=== PATIENT | male | born 1985 | race Caucasian/White ===

== ENCOUNTER 2020-10-23 07:55 | Day surgery (SDC) | payer BC ==
[~2020-10-23] VITALS: Ht 172.7 cm; Wt 75.5 kg
--- NOTE | 2020-10-23 09:49 | NUR ---
10/23/20 0949 ZACHERY DIANA 0944-PATIENT ARIVED TO PACU ON 2L O2. BREATHING LAYING LEFT LATERAL, BREATHING EVEN AND UNLABORED. NONAROUSABLE TO VERBAL OR TACTILE STIMULI AT THIS TIME. IN SINUS RHYTHM AND IV FLUIDS INFUSING.
--- NOTE | 2020-10-23 18:19 | OR ---
[facility] [address], [place] [address] Signed DATE OF OPERATION: 10/23/2020 SURGEON: Sintia Jones MD PREOPERATIVE DIAGNOSES: 1. Right-sided abdominal pain. 2. Daily alcohol use. 3. Daily snuff use. 4. Father with colonic polyps. 5. Previous history of smoking. POSTOPERATIVE DIAGNOSES: 1. Mild patchy distal gastritis. 2. Tiny hiatal hernia. 3. Small vallecular polypoid lesion. 4. 4 mm polyp at 10 cm. 5. Minimal internal hemorrhoids. PROCEDURES: 1. EGD with CLOtest and biopsies of the antrum and GE junction. 2. Colonoscopy with hot biopsy and cold biopsies of the terminal ileum. ESTIMATED BLOOD LOSS: None. INDICATIONS: Gaby is a 35-year-old gentleman asked to see me for upper and lower endoscopy with biopsies. 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. He and his both work and live in [place], [place]. They just had their 2nd baby. We just came through the COVID pandemic this last year. Oliverio feels like he has been under a fair amount of stress. He said he has had trouble now for several months with abdominal pain. It seems to be in the right mid quadrant as well as the right upper quadrant, but also in the left upper quadrant. The ultrasound of the gallbladder showed a tiny 4 mm polyp in his gallbladder that would not explain his pain. Polyps approaching 10 mm can be associated with cancers and have to be removed. He also had a CT scan of abdomen and pelvis last fall which was negative. He had a recent upper GI without small-bowel follow-through and it was negative. He talked about blood work and stool studies, but that is all pending at the time of his office visit. He said he was drinking 5 or 6 beers in a day, but switched over to during the COVID pandemic. He likes to chew snuff each day. He had been smoking a pack of cigarettes a day for a couple years, Electronically Signed By: SINTIA JONES MD 10/23/20 1819 PATIENT NAME: GABY DAMIAN SINTIA OPERATIVE REPORT DATE OF : 81 REPORT #: [id number] PHYSICIAN: SINTIA JONES MD PCP: HERNAN HDZ REPORT IS CONFIDENTIAL AND NOT TO BE RELEASED WITHOUT AUTHORIZATION [facility] [address], [place] [address] Signed but he quit. He also likes a little coffee every day. He said his father had colonic polyps removed. No family history of colon cancer. No inflammatory bowel disease in the family. In the office, I gave Gaby a pamphlet on upper and lower endoscopy. He understands the nature of those two tests along with the risks including, but not limited to gas bloating, crampy abdominal pain, bleeding, perforation requiring surgery, and missed diagnosis. We also discussed the need for IV conscious sedation. Given his daily alcohol use, we asked for monitored anesthesia care per nurse control systems eng. We also ordered a HIDA scan with ejection fraction of the gallbladder, which is still pending. Gaby had expressed understanding and wished to proceed. PROCEDURE NOTE: Gaby was taken in the endoscopy suite and placed in a supine semi-recumbent position. The posterior oropharynx was anesthetized with lidocaine spray. A bite block was utilized for the case. He was given IV propofol per our nurse control systems eng. The adult gastroscope was introduced and advanced under direct visualization of camera out into the third portion of the duodenum without difficulty. The duodenum and pyloric channel were unremarkable. The distal portion of the stomach showed some mild patchy erythematous changes. We took biopsies in this area for pathologic review as well as CLOtest. No ulcerations. The incisura body and fundus of the stomach were unremarkable. Upon retroflexion of scope he may have just a very tiny hiatal hernia. The scope was withdrawn up through the area of the GE junction, which was compliant without stricture. No gastric or esophageal varices. Very minimal disruption to the Z-line. Just a little irritation around the Z-line. Consequently, we took a biopsy in this area for pathologic review. There was no Sun's mucosa. No distal esophagitis. The middle and upper esophagus were unremarkable. When we withdrew the scope, we noticed vallecula, there was a small smooth round polypoid lesion. He should probably be evaluated by one of the Ear, Nose, and Throat surgeons. After this, the gas was suctioned out and the gastroscope removed. Gaby tolerated the upper endoscopy quite well. Gaby was then rotated into the left lateral decubitus position. He was maintained on IV sedation with propofol per our nurse control systems eng. A digital rectal exam was performed and this was unremarkable. Specifically, no external hemorrhoids, good sphincter tone and unremarkable prostate gland. The adult colonoscope was introduced and advanced under direct visualization of camera up to the cecum itself. His prep was quite excellent. We could easily see the appendiceal orifice and the ileocecal valve. We turned the camera and went up into the terminal ileum about 15 cm or so. It looked quite healthy to us. We went ahead and took a couple biopsies of the terminal ileum for pathologic review. The scope was then withdrawn back into the colon. We took pictures throughout as we withdrew the scope. We saw no pathology throughout the remainder of the colon. In the rectum, he had a very tiny polyp at 10 cm. This was easily removed with a hot biopsy forceps. Upon retroflexion of scope, he has very minimal standard Electronically Signed By: SINTIA JONES MD 10/23/20 1819 PATIENT NAME: GABY DAMIAN OPERATIVE REPORT DATE OF : 81 REPORT #: [id number] PHYSICIAN: SINTIA JONES MD PCP: HERNAN HDZ [facility] REPORT IS CONFIDENTIAL AND NOT TO BE RELEASED WITHOUT AUTHORIZATION [facility] [address], [place] [address] Signed internal hemorrhoid columns. After this, the gas was suctioned out and the colonoscope removed. Gaby tolerated the procedure quite well. RECOMMENDATIONS: I will see Gaby back in my office in 7 to 14 days to review his results of the endoscopy as well as a HIDA scan. If that is negative, he might consider a small bowel follow-through and/or capsule endoscopy. In the end, this may all be irritable bowel syndrome. MD ZACH Lewis/YANETL /[id number] cc: LOTTIE Valderrama MD Copies: SINTIA JONES MD ~ Electronically Signed By: SINTIA JONES MD 10/23/20 1819 PATIENT NAME: DAMIANGABY OPERATIVE REPORT DATE OF : 81 REPORT #: [id number] PHYSICIAN: SINTIA JONES MD PCP: HERNAN HDZ PAC REPORT IS CONFIDENTIAL AND NOT TO BE RELEASED WITHOUT AUTHORIZATION
--- NOTE | 2020-10-24 11:08 | PATH ---
[facility] [address], [place] [address] Signed SPECIMEN(S): A ANTRUM/PYLORUS SPECIMEN(S): B GE JUNCTION SPECIMEN(S): C RECTAL POLYP 10 CM SPECIMEN(S): D TERMINAL ILEUM SPECIMEN(S): E MID ASCENDING SPECIMEN SOURCE: A. ANTRUM/PYLORUS B. GE JUNCTION C. RECTAL POLYP 10 CM D. TERMINAL ILEUM E. MID ASCENDING CLINICAL HISTORY: Esophagogastroduodenoscopy, colonoscopy. Abdominal pain. Postop Dx: Mild gastritis, minimal internal hemorrhoids, rectal polyp. MICROSCOPIC DESCRIPTION: Histologic sections of all submitted blocks are examined by light microscopy. These findings, together with the gross examination, support the pathologic diagnosis. FINAL PATHOLOGIC DIAGNOSIS: A. Stomach, antrum/pylorus, biopsy: - Antral mucosa with reactive gastropathy. - Negative for Helicobacter organisms on HE stain. - Negative for dysplasia or malignancy. B. Gastroesophageal junction, biopsy: - Squamocolumnar junctional mucosa with changes consistent with reflux esophagitis. - Negative for intestinal metaplasia, dysplasia, or malignancy. C. Rectum, polyp at 10 cm, polypectomy: - Hyperplastic polyp. - Negative for dysplasia or malignancy. D. Terminal ileum, biopsy: - Ileal mucosa with no histopathologic abnormality. - Negative for active inflammation or granulomas. - Negative for dysplasia or malignancy. E. Colon, mid ascending, biopsy: - Colonic mucosa with no histopathologic abnormality. - Negative for active, chronic, or microscopic colitis. - Negative for dysplasia or malignancy. PATIENT NAME: GABY DAMIAN PATHOLOGY DATE OF : 81 REPORT #: [id number] PHYSICIAN: JULIANNA HALL PCP: HERNAN HDZ PAC REPORT IS CONFIDENTIAL AND NOT TO BE RELEASED WITHOUT AUTHORIZATION [facility] [address], [place] [address] Signed NAL:cml:C2NR GROSS DESCRIPTION: Five specimens are received in five containers, labeled "JE." A. The specimen, labeled "JE, antrum biopsy," is received in formalin and consists of one jacoob soft tissue fragment that measures 0.2 cm in greatest dimension. The specimen is entirely submitted in cassette (A1). B. The specimen, labeled "JE, GE junction biopsy," is received in formalin and consists of one jacobo soft tissue fragment that measures 0.4 cm in greatest dimension. The specimen is entirely submitted in cassette (B1). C. The specimen, labeled "JE, rectum polyp at 10 cm," is received in formalin and consists of one jacobo soft tissue fragment that measures 0.2 cm in greatest dimension. The specimen is entirely submitted in cassette (C1). D. The specimen, labeled "JE, terminal ileum biopsy," is received in formalin and consists of two jacobo soft tissue fragments that measure 0.2-0.8 cm in greatest dimension. The specimen is entirely submitted in cassette (D1). E. The specimen, labeled "JE, mid ascending colon biopsy," is received in formalin and consists of one jacobo soft tissue fragment that measures 0.2 cm in greatest dimension. The specimen is entirely submitted in cassette (E1). JS (under the direct supervision of a pathologist) The Gross Description was prepared using a voice recognition system. The report was reviewed for accuracy; however, sound-alike word errors, addition and/or deletions may occur. If there is any question about this report, please contact Client Services. PERFORMING LABORATORY: The technical component was performed by [facility], [address] [place] [id number] (Tester/Lift Trucker: Savannah Cabello MD; CLIA# [id number]). Professional interpretation was performed by [facility], [address] [address] (CLIA# [id number]). Diagnostician: Lucille Cabrera MD Pathologist Electronically Signed 10/24/2020 PATIENT NAME: GABY DAMIAN PATHOLOGY DATE OF : 81 REPORT #: [id number] PHYSICIAN: JULIANNA PATHOLOGY PCP: HERNAN HDZ PAC REPORT IS CONFIDENTIAL AND NOT TO BE RELEASED WITHOUT AUTHORIZATION [facility] [address], [place] [address] Signed Copies: ~ PATIENT NAME: GABY DAMIAN PATHOLOGY DATE OF : 81 REPORT #: [id number] PHYSICIAN: JULIANNA HALL PCP: HERNAN HDZ PAC REPORT IS CONFIDENTIAL AND NOT TO BE RELEASED WITHOUT AUTHORIZATION
== END 2020-10-23 10:41 | disposition home or self-care (01) ==
LOC: DS 07:55 → OPS 07:55 → DS 09:30 → OPS 10:41 → DS 12:00
PROVIDERS: ATTEND Colon & Rectal Surgery
PROC: 0DBB8ZX Excision of Ileum, Via Natural or Artificial Opening Endoscopic, Diagnostic (ICD-10-PCS; principal; 2020-10-23 09:00)
PROC: 0DBP8ZX Excision of Rectum, Via Natural or Artificial Opening Endoscopic, Diagnostic (ICD-10-PCS; 2020-10-23 09:00)
DX: K29.70 Gastritis, unspecified, without bleeding (principal); K31.9 Disease of stomach and duodenum, unspecified; K62.1 Rectal polyp; K44.9 Diaphragmatic hernia without obstruction or gangrene; K64.8 Other hemorrhoids; Z83.71 Family history of colonic polyps; Z87.891 Personal history of nicotine dependence
CPT/HCPCS: 86677; J2704; J7121